=== PATIENT | female | born 1985 | race African-American/Black ===

== ENCOUNTER → 2018-08-10 | Emergency (ER) | payer MEDICARE, OTHER ==
[~2018-08-10] VITALS: Ht 167.6 cm; Wt 105.5 kg
[~2018-08-10] MED LIST: ALLEGRA 180MG180 MG PO; ASPIRIN 81M81 MG/TA2 PO; AZULFIDINE500 MG/TAB PO; CEFTIN500 MG PO; CIPRO 250MG TA250 MG; COREG CR10 MG PO; CPAP; CYMBALTA 60MG60 MG PO; DIFLUCAN150 MG PO; DOXYCYCLINE HY100 MG PO; FLEXERIL 1010 MG/TAB PO; PHENERGAN 25 TA25 MG PO; PLAQUENIL 200M200 MG PO; PREDNISONE20 MG PO; PRIL40 PO; VIVLODEX10 MG PO; ZESTRIL40 MG PO
[2018-08-10 14:18] VITALS: BP 124/75; PULSE 98; TEMP 98.2
[2018-08-10 14:54] LABS: COLLECTION METHOD CLEAN CATCH
[2018-08-10 15:00] LABS: PH 6 (5-8); URINE APPEARANCE Clear; URINE BACTERIA None Seen /hpf; URINE BILIRUBIN Negative (NEGATIVE); URINE BLOOD 1+ (NEGATIVE); URINE COLOR Yellow; URINE GLUCOSE Negative (NEGATIVE); URINE KETONE Negative (NEGATIVE); URINE LEUKOCYTE ESTERASE Trace (NEGATIVE); URINE NITRATE Negative (NEGATIVE); URINE PROTEIN(semi-quant) 2+ (NEGATIVE); URINE UROBILINOGEN Negative (NEGATIVE)
== END ==
LOC: COL.ER 14:11
PROVIDERS: Emergency Medicine
DX: N73.9 Female pelvic inflammatory disease, unspecified (principal); N39.0 Urinary tract infection, site not specified; N76.0 Acute vaginitis; B96.89 Other specified bacterial agents as the cause of diseases classified elsewhere; M32.9 Systemic lupus erythematosus, unspecified; I10 Essential (primary) hypertension; Z79.82 Long term (current) use of aspirin; M79.7 Fibromyalgia; Z88.0 Allergy status to penicillin; Z98.51 Tubal ligation status
CPT/HCPCS: J0696